=== PATIENT | male | born 1960 | race Caucasian/White ===

== ENCOUNTER 2021-03-06 21:00 | Emergency (ER) | payer OTHER ==
[2021-03-06 21:24] LABS: BASOPHIL 0.4 % (0-2); EOSINOPHIL 3.3 % (0-5); HCT 44.3 % (42.0-52.0); HGB 15.2 g/dl (13.2-18.0); MCHC 34.3 g/dL (32.0-36.0); MCV 93.3 fL (78.0-100.0); MONOCYTE 8.7 % (0-12); MPV 11.1 fL (6.0-9.5); NEUTROPHIL 56.7 % (41-80); NRBC 0; PLT 306 K/uL (150-400); RBC 4.75 M/uL (4.70-6.00); RDW 12.7 % (11.5-14.0); WBC 11.6 K/uL (4.0-10.5)
[2021-03-06 21:40] LABS: BUN/CREAT RATIO (CALC) 26.7 RATIO; CREATININE 0.86 mg/dL (0.67-1.17); POTASSIUM 3.6 mmol/L (3.5-5.1)
[2021-03-06] MEDS ORDERED: ANTIVERT25 MG PO (22:46)
== END 2021-03-06 23:00 | disposition home or self-care (01) ==
LOC: FER 21:00
PROVIDERS: Emergency Medicine
DX: H81.10 Benign paroxysmal vertigo, unspecified ear (principal); E11.9 Type 2 diabetes mellitus without complications; I10 Essential (primary) hypertension; E78.5 Hyperlipidemia, unspecified; F17.210 Nicotine dependence, cigarettes, uncomplicated; Z79.84 Long term (current) use of oral hypoglycemic drugs; Z79.899 Other long term (current) drug therapy
CPT/HCPCS: 36415; 80048; 85025; 93005; J2550; J7030